=== PATIENT | female | born 1990 | race Caucasian/White ===

== ENCOUNTER 2017-06-05 19:57 | Outpatient (CLI) | payer MEDICAID ==
[~2017-06-05] VITALS: Ht 180.3 cm; Wt 115.5 kg
[2017-06-05 20:15] VITALS: BP 128/73; PULSE 86; TEMP 98.8
[2017-06-05 20:19] VITALS: BP 128/73; PULSE 86; TEMP 98.8
[2017-06-05] MEDS ORDERED: PRENATAL1 TA7 PO (20:28)
[2017-06-05] MEDS ORDERED: CALCIUM 600 PLU1 TAB PO (20:29)
== END 2017-06-05 21:45 | disposition home or self-care (01) ==
LOC: LDRO 19:57
DX: O62.9 Abnormality of forces of labor, unspecified (principal); Z3A.34 34 weeks gestation of pregnancy

== ENCOUNTER 2017-07-17 18:21 | Inpatient (IN) | payer MEDICAID ==
[2017-07-17] VITALS (10 sets, daily range): BP systolic 110–163; BP diastolic 67–96; PULSE 86–116; TEMP 98.3
[~2017-07-17] VITALS: Ht 182.9 cm; Wt 115.5 kg
[~2017-07-17 18:21] MED LIST: CALCIUM 600 PLU1 TAB PO; PRENATAL1 TA7 PO
[2017-07-17] MEDS ORDERED: BENADRYL50 MG PO (18:55)
[2017-07-17] MEDS ORDERED: TYLENOL 325MG325 MG PO (18:56)
[2017-07-17 20:18] LABS: BASO % 0.3 % (0.0-2.0); EOS # 0.1 (0.0-0.7); EOS % 0.5 % (0-4.0); GRAN # 11.2 (1.4-6.5); GRAN % 75.5 % (42.2-75.2); HEMATOCRIT 40.5 % (37.0-47.0); HEMOGLOBIN 13.4 g/dl (12.5-16.0); LYMPH # 2.7 (1.2-3.4); MEAN CELL VOLUME 86 fl (80.0-100.0); MEAN CORPUSCULAR HEMOGLOBIN 28 pg (27.0-31.0); MEAN CORPUSCULAR HGB CONC 33 g/dl (33.0-37.0); MEAN PLATELET VOLUME 10.8 fl (7.4-10.4); MONO # 0.7 (0.1-0.6); MONO % 4.9 % (1.7-9.3); PLATELET COUNT 239 K/mm3 (130-400); RED BLOOD COUNT 4.72 M/mm3 (4.10-5.30); WHITE BLOOD COUNT 14.9 K/mm3 (4.8-10.8)
[2017-07-17 20:33] LABS: ADJUSTED CALCIUM 9.6 mg/dL (8.4-10.2); ALBUMIN 4.3 gm/dL (3.5-5.0); BILIRUBIN,TOTAL 0.5 mg/dL (0.0-1.0); CALCIUM 9.8 mg/dL (8.4-10.2); CREATININE, serum 0.44 mg/dL (0.52-1.25); POTASSIUM 3.9 mmol/L (3.4-5.0); TOTAL PROTEIN 7.9 gm/dL (6.4-8.2)
[2017-07-17 22:09] LABS: COLLECTION METHOD CLEAN CATCH
[2017-07-17] MEDS ORDERED: MOTRIN 800800 MG/TAB PO (22:11)
[2017-07-17] MEDS ORDERED: PERCOCET 325 MG1 TA2 PO (22:11)
[2017-07-17 22:17] LABS: PH 6 (5-8); SQUAMOUS EPITHELIAL 0-2 /hpf; URINE APPEARANCE Clear; URINE BACTERIA Rare /hpf; URINE BILIRUBIN Negative (NEGATIVE); URINE BLOOD 1+ (NEGATIVE); URINE COLOR Straw; URINE GLUCOSE Negative (NEGATIVE); URINE KETONE Negative (NEGATIVE); URINE LEUKOCYTE ESTERASE Negative (NEGATIVE); URINE PROTEIN(semi-quant) Negative (NEGATIVE); URINE RBC 0-2 /hpf; URINE UROBILINOGEN Negative (NEGATIVE); URINE WBC 0-2 /hpf
[2017-07-18] VITALS (35 sets, daily range): BP systolic 112–171; BP diastolic 52–99; PULSE 92–144; TEMP 98.1–98.6
[2017-07-19 07:30] VITALS: BP 123/76; PULSE 95
== END 2017-07-19 16:40 | disposition home or self-care (01) | DRG 775 ==
LOC: LDRO 18:21 → LDR 18:30 → LDRO 20:20 → OB 07-18 10:09
PROVIDERS: Obstetrics & Gynecology
PROC: 10E0XZZ Delivery of Products of Conception, External Approach (ICD-10-PCS; principal; 2017-07-18)
PROC: 0KQM0ZZ Repair Perineum Muscle, Open Approach (ICD-10-PCS; 2017-07-18)
DX: O48.0 Post-term pregnancy (principal); O77.0 Labor and delivery complicated by meconium in amniotic fluid; O35.1XX0 Maternal care for (suspected) chromosomal abnormality in fetus, not applicable or unspecified; O76 Abnormality in fetal heart rate and rhythm complicating labor and delivery; O70.1 Second degree perineal laceration during delivery; Z3A.40 40 weeks gestation of pregnancy; Z37.0 Single live birth
CPT/HCPCS: J2590; J2795; J3105; J7120

== ENCOUNTER 2022-04-20 19:42 | Emergency (ER) | payer BC ==
[~2022-04-20] VITALS: Ht 182.9 cm; Wt 100.0 kg
[~2022-04-20 19:42] MED LIST changes: +BENADRYL50 MG PO; +MOTRIN 800800 MG/TAB PO; +PERCOCET 325 MG1 TA2 PO; +TYLENOL 325MG325 MG PO
[2022-04-20 20:23] LABS: BASO % 0.2 % (0.0-2.0); GRAN # 6.2 K/mm3 (1.4-6.5); GRAN % 75.2 % (42.2-75.2); HEMATOCRIT 41.4 % (37.0-47.0); HEMOGLOBIN 13.7 g/dl (12.5-16.0); LYMPH % 12.4 % (20.0-51.0); MEAN CELL VOLUME 86 fl (80.0-100.0); MEAN CORPUSCULAR HEMOGLOBIN 29 pg (27-31); MEAN CORPUSCULAR HGB CONC 33 g/dl (33.0-37.0); MONO % 11.8 % (1.7-9.3); PLATELET COUNT 229 K/mm3 (130-400); RED BLOOD COUNT 4.81 M/mm3 (4.10-5.30); REDCELL DISTRIBUTION WIDTH-CV 12.4 % (11.5-14.5)
[2022-04-20] MEDS ORDERED: DESYREL 100MG100 MG PO (20:27)
[2022-04-20] MEDS ORDERED: BUSPAR10 MG PO (20:27)
[2022-04-20] MEDS ORDERED: VIIBRYD20 MG PO (20:28)
[2022-04-20] MEDS ORDERED: LYLEQ0.35 MG PO (20:29)
[2022-04-20] MEDS ORDERED: KLONOPIN 0.5MG0.5 MG PO (20:29)
[2022-04-20 20:42] LABS: COLLECTION METHOD CLEAN CATCH
[2022-04-20 20:43] LABS: ALBUMIN 4.1 gm/dL (3.5-5.0); BILIRUBIN,TOTAL 0.5 mg/dL (0.2-1.2); CALCIUM 9.2 mg/dL (8.4-10.2); CREATININE, serum 1.03 mg/dL (0.57-1.11); POTASSIUM 3.6 mmol/L (3.5-4.5); TOTAL PROTEIN 7.2 gm/dL (6.2-8.1)
[2022-04-20 20:47] LABS: URINE APPEARANCE Hazy (CLEAR/HAZY); URINE COLOR Yellow (YELLOW); URINE PROTEIN(semi-quant) 1+ (NEGATIVE)
[2022-04-20 20:48] LABS: URINE BLOOD 2+ (NEGATIVE); URINE GLUCOSE Negative (NEGATIVE); URINE KETONE Negative (NEGATIVE); URINE NITRATE Negative (NEGATIVE); URINE UROBILINOGEN 0.2 E.U/dL (0.2-1.0)
[2022-04-20 20:49] LABS: URINE BACTERIA Rare /hpf (NONE SEEN)
[2022-04-20 21:05] VITALS: TEMP 98.8
[2022-04-20] MEDS ORDERED: DOXYCYCLINE 10100 MG PO (22:55)
[2022-04-20] MEDS ORDERED: FLAGYL500 MG PO (22:55)
[2022-04-20] MEDS ORDERED: ZOFRAN ODT4 MG PO (22:55)
[2022-04-20 22:59] VITALS: BP 121/79; PULSE 85
[2022-04-22] MEDS ORDERED: MACROBID 1100 MG/CAP PO (10:40)
[2022-04-23] MEDS ORDERED: VALTREX1 GM PO (14:03)
== END 2022-04-20 23:15 | disposition home or self-care (01) ==
LOC: COL.ER 19:42
PROVIDERS: Nurse Practitioner Primary Care
DX: N73.0 Acute parametritis and pelvic cellulitis (principal); N72 Inflammatory disease of cervix uteri; R74.02 Elevation of levels of lactic acid dehydrogenase [LDH]; F41.9 Anxiety disorder, unspecified; R73.9 Hyperglycemia, unspecified; F17.210 Nicotine dependence, cigarettes, uncomplicated; Z88.1 Allergy status to other antibiotic agents; Z20.822 Contact with and (suspected) exposure to COVID-19
CPT/HCPCS: J0696; J1885; J2060; J2405; J7030